=== PATIENT | male | born 1980 | race Caucasian/White ===

== ENCOUNTER 2020-12-14 15:24 | Emergency (ER) | payer SELFPAY ==
[2020-12-14] MEDS ORDERED: Diphtheria,Pertussis(Acell),Tetanus Vaccine 0.5 ML Syringe IM ONE (16:12)
--- NOTE | 2020-12-14 17:11 | CR ---
Indication: Laceration. Possible foreign body. Technique: Left hand 3 views Comparison: None Findings/Impression: Bones: Alignment is normal. No fractures or bone lesions. Joint spaces: Unremarkable. Soft tissues: A 16 x 8 x 5 mm radiopaque foreign body is in the anterior soft tissues between the 1st and 2nd digits. Dictated by Lars Birch MD @ 12/14/2020 5:10:[address] Lars Birch @ Dec 14 2020 5:10PM
--- NOTE | 2020-12-14 17:50 | EDM.PDOC ---
ED HPI GENERAL MEDICAL PROBLEM - General Chief Complaint: Laceration Stated Complaint: LT PALM INJURY Time Seen by Provider: 12/14/20 15:25 Source of Information: Reports: Patient History Limitations: Reports: No Limitations - History of Present Illness INITIAL COMMENTS - FREE TEXT/NARRATIVE: HISTORY AND PHYSICAL: History of present illness: Patient is a 40-year-old male resents emergency room today with concern of left hand laceration that occurred just prior to arrival to the emergency room. Patient states that he was changing out the fluorescent light bulbs in his garag e and states that he was trying to remove the light bulb from the fixture. Patient states that he was pulling the light bulb and it broke and stabbed into his left hand. Patient states that he is not up-to-date on tetanus and would like to update this today. Patient states he is fully able to move his hand and feel it without any difficulties. Patient denies fever, chills, chest pain, shortness of breath, or cough. Denies headache, neck stiff ness, change in vision, syncope, or near syncope. Denies nausea, vomiting, abdominal pain, diarrhea, constipation, or dysuria. Has not noted any blood in urine or stool. Patient has been eating and drinking appropriately. Review of systems: As per history of present illness and below otherwise all systems reviewed and negative. Past medical history: As per history of present illness and as reviewed below otherwise noncontributory. Surgical history: As per history of present illness and as reviewed below otherwise noncontributory. Social history: See social history for further information Family history: As per history of present illness and as reviewed below otherwise noncontributory. Physical exam: General: Patient is alert, oriented, and in no acute distress. Patient sitting comfortably on exam table. Vitals stable and reviewed by me. HEENT: Atraumatic, normocephalic, pupils equal and reactive bilaterally, negative for conjunctival pallor or scleral icterus, mucous membranes moist, TMs normal bilaterally, throat clear, neck supple, nontender, trachea midline. No drooling or trismus noted. No meningeal signs. No hot potato voice noted. Lungs: Clear to auscultation, breath sounds equal bilaterally, chest nontender. Heart: S1S2, regular rate and rhythm without overt murmur Abdomen: Soft, nondistended, nontender. Negative for masses or hepatosplenomegaly. Negative for costovertebral tenderness. Pelvis: Stable nontender. Genitourinary: Deferred. Rectal: Deferred. Skin: Intact, warm, dry. No lesions or rashes noted. Extremities: There is a 3cm subcutaneous laceration over the lateral palm of the left hand with hemostasis. There is edema underlying the laceration. Patient has full range of motion of complete left upper extremity without pain or difficulty. Intact sensation to light and deep touch of the complete left upper extremity with capillary refill less than 2 seconds. Atraumatic, negative for cords or calf pain. Neurovascular unremarkable. Neuro: Awake, alert, oriented. Cranial nerves II through XII unremarkable. Cerebellum unremarkable. Motor and sensory unremarkable throughout. Exam nonfocal. Notes: See procedure note below. Signs and symptoms that were prompt return to the ED thoroughly discussed with patient. Discussed importance for follow-up with a primary care provider. Voices understanding and is agreeable to plan of care. Denies any further questions or concerns at this time. Diagnostics: Hand x-ray Therapeutics: Foreign body removal of laceration, sutures, lidocaine, Tdap Prescription: Keflex Impression: Left hand laceration with foreign body Plan: 1. Keep the area clean and dry. Continue to monitor for signs of infection as discussed. Sutures to be removed in 7-10 days. 2. Tylenol and/or ibuprofen as directed and as needed for pain management and discomfort. After 48 hours, perform gentle stretching of the hand as shown and as discussed. Repeat this 4-5 times per day and hold for 60 seconds at a time. 3. Please follow-up with your primary care provider as discussed. Return to the ED as needed and as discussed. Definitive disposition and diagnosis as appropriate pending reevaluation and review of above. Left Hand Pain Score (Numeric/FACES): 4 - Related Data Allergies Allergy/AdvReac Type Severity Reaction Status Date / Time No Known Allergies Allergy Verified 12/14/20 15:41 Home Meds: Home Meds Levothyroxine 1 tab PO DAILY 12/14/20 [History] cephALEXin [Keflex] 500 mg PO BID 5 Days #10 cap 12/14/20 [Rx] Past Medical History - Past Health History Medical/Surgical History: Denies Medical/Surgical History Endocrine/Metabolic History: Reports: Hypothyroidism - Infectious Disease History Infectious Disease History: Reports: None Social & Family History - Family History Family Medical History: No Pertinent Family History - Tobacco Use Tobacco Use Status *Q: Never Tobacco User - Recreational Drug Use Recreational Drug Use: No ED ROS GENERAL - Review of Systems Review Of Systems: Comprehensive ROS is negative, except as noted in HPI. ED EXAM, SKIN/RASH Exam: See Below (See dictation) ED SKIN PROCEDURES - Laceration/Wound Repair Left Hand Appearance: Subcutaneous, Muscle, Linear, Mildly Contaminated Distal NVT: Neuro & Vascular Intact, No Tendon Injury Anesthetic Type: Local Local Anesthesia - Lidocaine (Xylocaine): 1% Plain Local Anesthetic Volume: Other (8cc) Skin Prep: Chlorhexidine (Hibiciens), Saline Saline Irrigation (cc's): 400 Exploration/Debridement/Repair: Wound Explored, In a Bloodless Field, Explored to Base, Foreign Material Removed Closed with: Sutures Lac/Wound length In cm: 3 Suture Size: 4-0 # of Sutures: 7 Suture Type: Silk, Interrupted Drain Placement: No Sterile Dressing Applied: Nurse Tetanus Status Addressed: Yes Complications: No Course - Vital Signs Last Recorded V/S: Last Vital Signs Temp 97.5 F 12/14/20 15:42 Pulse 80 12/14/20 15:42 Resp 16 12/14/20 15:42 BP 171/105 H 12/14/20 15:42 Pulse Ox 96 12/14/20 15:42 - Orders/Labs/Meds Meds: Medications Discontinued Medications Generic Name Dose Route Start Last Admin Trade Name Freq PRN Reason Stop Dose Admin Diphtheria/Tetanus/Acell Pertussis 0.5 ml 12/14/20 16:12 12/14/20 16:18 Diphtheria,Pertussis(Acell),Tetanus Vaccine 0.5 Ml Syringe IM 12/14/20 16:13 0.5 ml .ONCE ONE Administration Lidocaine HCl 5 ml 12/14/20 16:15 12/14/20 16:18 Lidocaine 1% 5 Ml Sdv INJECT 12/14/20 16:16 5 ml ONETIME ONE Administration Lidocaine HCl 5 ml 12/14/20 17:11 12/14/20 17:32 Lidocaine 1% 5 Ml Sdv INJECT 12/14/20 17:12 5 ml ONETIME ONE Administration Departure - Departure Time of Disposition: 17:49 Disposition: Home, Self-Care 01 Clinical Impression: Hand laceration Qualifiers: Encounter type: initial encounter Foreign body presence: with foreign body Laterality: left Qualified Code(s): S61.422A - Laceration with foreign body of left hand, initial encounter - Discharge Information Instructions: Skin Foreign Body, Laceration Care, Adult, [id number] Referrals: PCP,None [Primary Care Provider] - Forms: ED Department Discharge Additional Instructions: The following information is given to patients seen in the emergency department who are being discharged to home. This information is to outline your options for follow-up care. We provide all patients seen in our emergency department with a follow-up referral. The need for follow-up, as well as the timing and circumstances, are variable depending upon the specifics of your emergency department visit. If you don't have a primary care physician on staff, we will provide you with a referral. We always advise you to contact your personal physician following an emergency department visit to inform them of the circumstance of the visit and for follow-up with them and/or the need for any referrals to a consulting specialist. The emergency department will also refer you to a specialist when appropriate. This referral assures that you have the opportunity for follow-up care with a specialist. All of these measure are taken in an effort to provide you with optimal care, which includes your follow-up. Under all circumstances we always encourage you to contact your private physician who remains a resource for coordinating your care. When calling for follow-up care, please make the office aware that this follow-up is from your recent emergency room visit. If for any reason you are refused follow-up, please contact the [facility] Emergency Department at and asked to speak to the emergency department charge nurse. [facility] [address] [place] [address] [id number] [address] [id number] 1. Keep the area clean and dry. Continue to monitor for signs of infection as discussed. Sutures to be removed in 7-10 days. 2. Tylenol and/or ibuprofen as directed and as needed for pain management and discomfort. After 48 hours, perform gentle stretching of the hand as shown and as discussed. Repeat this 4-5 times per day and hold for 60 seconds at a time. 3. Please follow-up with your primary care provider as discussed. Return to the ED as needed and as discussed. Sepsis Event Note (ED) - Evaluation Sepsis Screening Result: No Definite Risk - Focused Exam Vital Signs: Vital Signs Temp Pulse Resp BP Pulse Ox 12/14/20 15:42 97.5 F 80 16 171/105 H 96
== END 2020-12-14 18:30 | disposition home or self-care (01) ==
LOC: MW.ED 15:24
DX: S61.422A Laceration with foreign body of left hand, initial encounter (principal); E03.9 Hypothyroidism, unspecified; Z23 Encounter for immunization; Z79.899 Other long term (current) drug therapy; W26.8XXA Contact with other sharp object(s), not elsewhere classified, initial encounter; Y92.59 Other trade areas as the place of occurrence of the external cause
CPT/HCPCS: 12002; 12042; 73130-26-LT; 73130-LT; 90471; 90715; 99283; 99283-25

== ENCOUNTER 2022-02-11 13:07 | Emergency (ER) | payer BC ==
[2022-02-11 14:17] LABS: CORONAVIRUS COVID-19 NAA NEGATIVE (NEGATIVE); INFLUENZA A NAA NEGATIVE (NEGATIVE); INFLUENZA B NAA NEGATIVE (NEGATIVE)
[2022-02-11 16:57] LABS: C. TRACHOMATIS BY PCR NOT DETECTED; N. GONORRHOEAE BY PCR NOT DETECTED
== END 2022-02-11 17:40 | disposition home or self-care (01) ==
LOC: MW.ED 13:07
DX: J02.9 Acute pharyngitis, unspecified (principal); E03.9 Hypothyroidism, unspecified; Z79.899 Other long term (current) drug therapy
CPT/HCPCS: 0240U; 36415; 85025; 86308; 87070; 87491; 87591; 87880; 99283

== ENCOUNTER 2022-08-15 16:19 | Emergency (ER) | payer OTHER, BC ==
[2022-08-15] MEDS ORDERED: Bupivacaine 0.25% 10 ML SDV INJECT ONE (18:46)
[2022-08-15] MEDS ORDERED: Lidocaine 1% 5 ML VIAL INJECT ONE (18:46)
[2022-08-15] MEDS ORDERED: Bacitracin Oint 1 GM U/D Packet TOP ONE (18:47)
== END 2022-08-15 20:29 | disposition home or self-care (01) ==
LOC: MW.ED 16:19
DX: S61.011A Laceration without foreign body of right thumb without damage to nail, initial encounter (principal); E03.9 Hypothyroidism, unspecified; Z79.899 Other long term (current) drug therapy; W26.0XXA Contact with knife, initial encounter
CPT/HCPCS: 12001; 99282; J3490